=== PATIENT | female | born 1995 | race Caucasian/White ===

== ENCOUNTER 2018-05-31 12:56 | Emergency (ER) | payer OTHER ==
--- NOTE | 2018-05-31 14:29 | EDPHYS ---
Physician Documentation [facility] Name: Guilherme Pollack Age: 22 yrs Sex: Female : 1995 Arrival Date: 05/31/2018 Time: 12:57 Bed 28 Private MD: Unknown, Unknown ED Physician Дмитрий Diaz HPI: 05/31 14:24 This 22 yrs old Female presents to ER via Ambulatory with complaints of ma2 POSSIBLE HERNIA. 14:24 Onset: The symptoms/episode began/occurred gradually, 6 week(s) ago. Associated signs ma2 and symptoms: Pertinent negatives: anorexia, blood in stools, constipation, diarrhea, dysuria, vomiting, vomiting blood. Severity of pain: At its worst the pain was very mild in the emergency department the pain has resolved. has right middle abdominal lump that is been there for weeks small no pain unchanged no other symptoms . 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 - Social history:: Smoking status: Patient/guardian denies using tobacco, Patient/guardian denies using alcohol, street drugs, The patient lives with family. - Ebola Screening: : No symptoms or risks identified at this time. - Family history:: not pertinent. ROS: 14:24 Constitutional: Negative for fever, chills, and weight loss, Cardiovascular: Negative ma2 for chest pain, palpitations, and edema, Respiratory: Negative for shortness of breath, cough, wheezing, and pleuritic chest pain, Abdomen/GI: Negative for abdominal pain, nausea, diarrhea, and constipation, MS/Extremity: Negative for injury and deformity, Psych: Negative for depression, anxiety, suicide ideation, homicidal ideation, and hallucinations, Allergy/Immunology: Negative for hives, rash, and allergies. 14:24 All other systems are negative. Exam: 14:24 Constitutional: This is a well developed, well nourished patient who is awake, alert, ma2 and in no acute distress. Chest/axilla: Normal chest wall appearance and motion. Nontender with no deformity. No lesions are appreciated. Cardiovascular: Regular rate and rhythm with a normal S1 and S2. No gallops, murmurs, or rubs. Normal PMI, no JVD. No pulse deficits. Respiratory: Lungs have equal breath sounds bilaterally, clear to auscultation and percussion. No rales, rhonchi or wheezes noted. No increased work of breathing, no retractions or nasal flaring. Back: No spinal tenderness. No costovertebral tenderness. Full range of motion. Skin: Warm, dry with normal turgor. Normal color with no rashes, no lesions, and no evidence of cellulitis. MS/ Extremity: Pulses equal, no cyanosis. Neurovascular intact. Full, normal range of motion. Neuro: Awake and alert, GCS 15, oriented to person, place, time, and situation. Cranial nerves II-XII grossly intact. Motor strength 5/5 in all extremities. Sensory grossly intact. Cerebellar exam normal. Normal gait. 14:24 Abdomen/GI: Inspection: abdomen appears normal, Bowel sounds: normal, Palpation: mass, that is nontender, approximately 1 cm(s), of the right lower quadrant, on the abdominal wall small firm nodule , Rectal exam: Indicators: McBurney's point is not tender, Liver: Hernia: not appreciated. Vital Signs: 13:11 BP 125 / 71; Pulse 64; Resp 18 S; Temp 97.7(TE); Pulse Ox 99% on R/A; Weight 52.16 kg aa5 (R); Pain 3/10; 13:51 BP 113 / 81; Pulse 61; Resp 18; Pulse Ox 97% on R/A; tl3 14:47 BP 100 / 71; Pulse 57; Resp 18; Pulse Ox 100% on R/A; tl3 MDM: 13:16 Patient medically screened. ma2 14:24 Differential diagnosis: rectus abdominus hernia vs abdominal wall lipoma vs other mass. ma2 Data reviewed: vital signs, nurses notes. Counseling: I had a detailed discussion with the patient and/or guardian regarding: the historical points, exam findings, and any diagnostic results supporting the discharge/admit diagnosis, the presence of at least one elevated blood pressure reading (>120/80) during this emergency department visit. Counseling: I had a detailed discussion with the patient and/or guardian regarding: the need for outpatient follow up. Administered Medications: No medications were administered Disposition: 05/31/18 14:29 Discharged to Home. Impression: Benign lipomatous neoplasm of other sites. - Condition is Stable. - Discharge Instructions: Lipoma. - Medication Reconciliation Form, Thank You Letter, Antibiotic Education, Prescription Opioid Use form. - Follow up: Anton Beltrán MD; When: 5 - 6 days; Reason: Continuance of care. Signatures: Adriana Rowland RN RN aa5 Дмитрий Diaz MD MD ma2 Dariela Boone RN RN tl3 Corrections: (The following items were deleted from the chart) 14:49 14:29 05/31/2018 14:29 Discharged to Home. Impression: Benign lipomatous neoplasm of tl3 other sites. Condition is Stable. Forms are Medication Reconciliation Form, Thank You Letter, Antibiotic Education, Prescription Opioid Use. Follow up: Anton Beltrán; When: 5 - 6 days; Reason: Continuance of care. ma2
--- NOTE | 2018-05-31 14:29 | ER ---
Nurse's Notes [facility] Name: Guilherme Pollack Age: 22 yrs Sex: Female : 1995 Arrival Date: 05/31/2018 Time: 12:57 Bed 28 Private MD: Unknown, Unknown Diagnosis: Benign lipomatous neoplasm of other sites Presentation: 05/31 13:09 Presenting complaint: Patient states: "I think I have a hernia because I have a lump on aa5 my stomach and it hurts when I move a certain way or touch it". Transition of care: patient was not received from another setting of care. Onset of symptoms was May 25, 2018. Risk Assessment: Do you want to hurt yourself or someone else? Patient reports no desire to harm self or others. Initial Sepsis Screen: Does the patient meet any 2 criteria? No. Patient's initial sepsis screen is negative. Does the patient have a suspected source of infection? No. Patient's initial sepsis screen is negative. Care prior to arrival: None. 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 - Social history:: Smoking status: Patient/guardian denies using tobacco, Patient/guardian denies using alcohol, street drugs, The patient lives with family. - Ebola Screening: : No symptoms or risks identified at this time. - Family history:: not pertinent. Screenin:17 Abuse screen: Denies threats or abuse. Nutritional screening: No deficits noted. tl3 Tuberculosis screening: No symptoms or risk factors identified. Fall Risk None identified. Assessment: 13:17 General: Appears uncomfortable, slender, well groomed, well developed, well nourished, tl3 Behavior is calm, cooperative, appropriate for age. Pain: Complains of pain in abdomen. Neuro: Level of Consciousness is awake, alert, obeys commands, Oriented to person, place, time, situation, Appropriate for age. Cardiovascular: Patient's skin is warm and dry. Respiratory: Airway is patent is compromised Respiratory effort is even, unlabored, Respiratory pattern is regular, symmetrical. GI: Abdomen is flat. : No signs and/or symptoms were reported regarding the genitourinary system. EENT: No signs and/or symptoms were reported regarding the EENT system. Derm: No signs and/or symptoms reported regarding the dermatologic system. 13:51 GI: Abdomen is flat, Abdomen is tender to palpation in right lower quadrant quarter tl3 sized nodule noted, pt stated that it is smaller today than it was yesterday. 14:47 Reassessment: Patient appears in no apparent distress at this time. No changes from tl3 previously documented assessment. Patient and/or family updated on plan of care and expected duration. Pain level reassessed. Patient is alert, oriented x 3, equal unlabored respirations, skin warm/dry/pink. pt being discharged. Vital Signs: 13:11 BP 125 / 71; Pulse 64; Resp 18 S; Temp 97.7(TE); Pulse Ox 99% on R/A; Weight 52.16 kg aa5 (R); Pain 3/10; 13:51 BP 113 / 81; Pulse 61; Resp 18; Pulse Ox 97% on R/A; tl3 14:47 BP 100 / 71; Pulse 57; Resp 18; Pulse Ox 100% on R/A; tl3 ED Course: 12:57 Patient arrived in ED. ag5 12:58 Unknown, Unknown is Private Physician. ag5 13:09 Arm band placed on. aa5 13:10 Triage completed. aa5 13:16 Дмитрий Diaz MD is Attending Physician. ma2 13:17 Dariela Boone, RN is Primary Nurse. tl3 13:17 Patient has correct armband on for positive identification. Bed in low position. Call tl3 light in reach. Side rails up X 1. Pulse ox on. NIBP on. 13:17 No provider procedures requiring assistance completed. tl3 14:27 Anton Beltrán MD is Referral Physician. ma2 14:47 Patient did not have IV access during this emergency room visit. tl3 Administered Medications: No medications were administered Outcome: 14:29 Discharge ordered by . ma2 14:47 Discharged to home ambulatory. tl3 14:47 Condition: stable 14:47 Discharge instructions given to patient, Instructed on discharge instructions, follow up and referral plans. Demonstrated understanding of instructions, follow-up care. 14:49 Patient left the ED. tl3 Signatures: Adriana Rowland RN RN aa5 Дмитрий Diaz MD MD ma2 Dariela Boone RN RN tl3 Yasmany Wylie 5
[2018-05-31 15:44] VITALS: TEMP 97.7
[2018-05-31 15:47] VITALS: BP 100/71; O2SAT 100
== END 2018-05-31 14:49 | disposition home or self-care (01) ==
LOC: ER 12:56
DX: D17.79 Benign lipomatous neoplasm of other sites (principal)
CPT/HCPCS: 99283